=== PATIENT | female | born 1970 | race Caucasian/White ===

== ENCOUNTER 2021-07-19 20:32 | Inpatient (IN) ==
[2021-07-19] MEDS ORDERED: PANTOprazole 80 MG in DEXTROSE 5% 100 ML IV STA (21:04)
[2021-07-19] MEDS ORDERED: SODIUM CHLORIDE 0.9% 1000ML 1,000 ML IV ONE (21:04)
--- NOTE | 2021-07-19 21:10 | Emergency Department Note ---
Impression & Plan Acute upper gastrointestinal bleeding, COVID-19 ED Provider Note Name: JENNIFER MUNOZ Age: 51 Sex: F Arrives Via: Ambulance Informant: Patient ED Provider: Rafael Lewis MD Chief Complaint: Bloody Stools Impression: As Per Impressions Above Medical Decision Makin yr old female with remote history of gastric bypass arrives with black/bloody stools and some blood in emesis. She looks ill on arrival and has diaphoresis with some non-specific ST abnormalities on EKG. Labs obtained and CT a/p which reveal no acute findings. She ended up being positive for Covid which is likely cause of her ill appearance. Fluids and protonix given and patient does appear much better with IV fluids. Given GI bleed with GBypass history and ill appearance hospitalization warranted. Triage/Nursing Notes reviewed by Me Differentials:Diverticulosis, AVM, coagulopathy, colitis, inflammatory bowel disease, malignancy, Angie-Mederos tear, esophagitis, peptic ulcer disease, variceal bleed, gastritis, epistaxis, fissure, hemorrhoids, as well as other pathologies. Vital Signs: reviewed and remarkable for no significant abnormalities Interventions: saline lock, nss bolus, protonix iv Labs:Reviewed and remarkable for no significant abnormalities Imaging:See Below Per My Interpretation: Indication Illness: NSR 86 bpm, qtc 457, there are ST depressions anterior without STEMI. Mildly enlarged P waves. No Ectopy. Consults:Dr Jacob BALDWIN Hospitalist Plan: Disposition:Hospitalization. Condition: Good History of Present Illness:51 yr old female arrives for evaluation of gi bleed. Patient notes history of Gastric Bypass about 5 yrs ago at [facility]. Denies abdominal issues and no history GERD nor gastritis. Today noted increasing weakness and fatigue. Started having bloody bowel movements. Assoc iated with episode vomiting that notes some blood in it. Worsening weakness, fatigue, diaphoresis and feeling like she would pass out. Notes with laying flat and relaxing she feels much better. Denies fevers, chills, syncope, nausea, headache, back pain, abdominal pain, urinary symptoms, bruising, leg swelling, calf pain, nor other symptoms. Denies history GI Bleed. No trauma, injuries, falls. Standing makes worse, rest makes better. On on blood thinners, NSAIDs, nor asa. ROS: See above HPI for pertinent positives & negatives. A total of 10 systems reviewed and were otherwise negative. Past Medical History:HTN, Chronica pin Past Surgical History:Gastric Bypass Family History:none Social History:See Below Home Medications:Gabapentin, Bupropion Allergies:Lisinopril, Penicillin Vitals:Blood Pressure: 127/74, Pulse 92, RR 20, T 36.4C, O2 100% on RA Physical Exam: GENERAL: Patient is tired/pale appearing and in mild distress. Diaphoretic EYES: No scleral icterus, unremarkable pupils. Pale conjunctiva ENT: Mucous membranes moist, no nasal congestion. NECK: No masses appreciated, nomeningismus, trachea is midline. RESPIRATORY: No dyspnea. Clear to auscultation and equal bilaterally. No wheeze, no rhonchi. CARDIOVASCULAR: Regular rate and rhythm.No murmurs, rubs, gallops appreciated. GASTROINTESTINAL: Abdomen soft, non-tender, no peritonitis.Bowel sounds positive.No masses appreciated. BACK: No midline tenderness, no CVA tenderness EXTREMITIES: Normal motion all extremities, no cyanosis, no edema. NEUROLOGIC: Alert and oriented, no acute motor or sensory deficits, no focal weakness, cranial nerves grossly intact. SKIN: No rash, no jaundice, no diaphoresis. PSYCH: Appropriate GCS: 15 ED Course: Times/Reassessments: much improved with IV fluids and appears comfortable. Rafael Lewis MD Past Med/Surg History Medical History Depression Migraine headache Vitamin B12 deficiency Surgical History Gastric bypass status for obesity Social History Smoking Status: Former smoker Hx Alcohol Use: No Hx Substance Use: No Preferred Language: Maori Communication Ability: Effective Television Maintenance Man Required: No Beliefs That Will Affect Care: None Current Living Situation: Spouse Feels Safe at Home: Yes Assistive Devices: None Allergies Allergies Allergy/AdvReac Type Severity Reaction Status Date / Time Penicillins Allergy Intermediate HIVES-REDDENED Verified 07/20/21 12:48 WELTS lisinopril AdvReac Intermediate Cough Verified 07/20/21 12:48 Home Meds Home Medications Medication Instructions Recorded Confirmed calcium carbonate 600 mg calcium 600 mg PO DAILY 07/19/21 07/20/21 (1,500 mg) tablet (Calcium) cetirizine 10 mg tablet (Zyrtec) 10 mg PO DAILY 07/19/21 07/20/21 cholecalciferol (vitamin D3) 50 50 mcg PO DAILY 07/19/21 07/20/21 mcg (2,000 unit) capsule (Vitamin D3) cyanocobalamin (vitamin B-12) 1,000 mcg PO DAILY 07/19/21 07/20/21 1,000 mcg tablet (Vitamin B-12) gabapentin 100 mg capsule 100 mg PO HS 07/19/21 07/20/21 multivitamin 1 tab PO DAILY 07/19/21 07/20/21 rizatriptan 5 mg tablet 5 mg PO DIRECTED PRN 07/19/21 07/20/21 sertraline 50 mg tablet 50 mg PO DAILY 07/19/21 07/20/21 vitamin E 400 unit capsule 400 unit PO DAILY 07/19/21 07/19/21 Previous Rx's Medication Instructions Recorded pantoprazole 40 mg tablet,delayed 40 mg PO DAILY 28 Days #28 tab 07/21/21 release (Protonix) sodium,potassium,mag sulfates 17.5 See Rx Instructions PO .COMPLEX 07/22/21 gram-3.13 gram-1.6 gram oral soln #354 ml (Suprep Bowel Prep Kit) Results & Data (ED) Vital Signs Vital Signs - 24 hr 07/19/21 20:41 Temperature 36.4 C L Temperature Source Oral Pulse Rate 92 H Respiratory Rate 20 Blood Pressure 127/74 Blood Pressure Mean 91 Pulse Oximetry 100 Oxygen Delivery Method Room Air Sepsis Recent Fever Within 48 Hours No Sepsis New/Unexplained Change in Mental Status N/A Sepsis Action Taken by Nursing No Action Required Laboratory Data Result diagrams: 07/21/21 14:40 07/19/21 21:38 Lab Results 07/19/21 07/19/21 07/19/21 Range/Units 21:19 21:24 21:24 WBC (4.8-10.8) K/uL RBC (4.2-5.4) M/uL Hgb (12.0-16.0) g/dL POC Hgb 10.2 L (12.0-16.0) g/dl Hct (37-47) % POC Hct 30 L (37-47) % MCV (80-100) fL MCH (25-34) pg MCHC (32-36) g/dL RDW Std Deviation (36.4-46.3) fL RDW Coeff of Yoel (11.5-14.5) % Plt Count (130-400) K/uL MPV (7.4-10.4) fL Immature Gran % (Auto) % Neut % (Auto) % Lymph % (Auto) % [place] % (Auto) % Eos % (Auto) % Baso % (Auto) % Neut # (Auto) (1.4-6.5) K/uL Lymph # (Auto) (1.2-3.4) K/uL [place] # (Auto) (0.11-0.59) K/uL Eos # (Auto) (0-0.5) K/uL Baso # (Auto) (0-0.2) K/uL Immature Gran # (Auto) (0.00-0.02) K/uL PT (9.0-12.0) Seconds INR (0.9-1.1) APTT (21.0-31.0) Seconds PTT Ratio POC Sodium 141 (135-144) mmol/L Sodium (136-145) mmol/L POC Potassium 3.9 (3.3-5.0) mmol/L Potassium (3.5-5.1) mmol/L POC Chloride 107 (101-112) mmol/L Chloride (98-107) mmol/L Carbon Dioxide (21-32) mmol/L POC Total CO2 21 L (24-31) mmol/L Anion Gap (3-11) POC Anion Gap 18.0 (16-25) mmol/L POC BUN 39 H (7-18) mg/dl BUN (7-18) mg/dl Creatinine (0.6-1.2) mg/dl POC Creatinine 0.8 (0.6-1.3) mg/dl Est Cr Clr Drug Dosing ml/min Est GFR ( Amer) ml/min Est GFR (Non-Af Amer) ml/min BUN/Creatinine Ratio (10-20) Glucose (70-99) mg/dl POC Glucose (other) 214 H (70-99) mg/dl Calcium (8.5-10.1) mg/dl POC Ioniz Calcium Addy 1.16 (1.12-1.32) mmol/l Magnesium (1.8-2.4) mg/dl Total Bilirubin (0.2-1) mg/dl Direct Bilirubin (0-0.2) mg/dl AST (15-37) U/L ALT (12-78) U/L Alkaline Phosphatase (45-117) U/L Troponin I (0-0.045) ng/ml Total Protein (6.4-8.2) gm/dl Albumin (3.4-5.0) gm/dl Lipase (73-393) U/L Urine Color Urine Appearance (Clear) Urine pH (4.5-7.5) Ur Specific Temple (1.000-1.030) Urine Protein (Negative) Urine Glucose (UA) (Negative) Urine Ketones (Negative) Urine Blood (Negative) Urine Nitrite (Negative) Urine Bilirubin (Negative) Urine Urobilinogen (Negative) Ur Leukocyte Esterase (Negative) Urine WBC (Auto) (0-5) /hpf Urine RBC (Auto) (0-4) /hpf U Hyaline Cast (Auto) (0-5) /lpf U Epithel Cells (Auto) (0-5) /lpf Urine Bacteria (Auto) (Negative) Urine Yeast Urine Test (Negative) COVID-19 Eval Order Covid19 at [facility] SARS-CoV-2 (PCR) POSITIVE A* (Negative) Blood Type Antibody Screen 07/19/21 07/19/21 07/19/21 Range/Units 21:38 21:38 21:38 WBC 19.83 H (4.8-10.8) K/uL RBC 3.79 L (4.2-5.4) M/uL Hgb 11.1 L (12.0-16.0) g/dL POC Hgb (12.0-16.0) g/dl Hct 33.3 L (37-47) % POC Hct (37-47) % MCV 87.9 (80-100) fL MCH 29.3 (25-34) pg MCHC 33.3 (32-36) g/dL RDW Std Deviation 43.8 (36.4-46.3) fL RDW Coeff of Yoel 13.6 (11.5-14.5) % Plt Count 318 (130-400) K/uL MPV 10.2 (7.4-10.4) fL Immature Gran % (Auto) 0.4 % Neut % (Auto) 80.1 % Lymph % (Auto) 15.4 % [place] % (Auto) 3.6 % Eos % (Auto) 0.3 % Baso % (Auto) 0.2 % Neut # (Auto) 15.89 H (1.4-6.5) K/uL Lymph # (Auto) 3.06 (1.2-3.4) K/uL [place] # (Auto) 0.72 H (0.11-0.59) K/uL Eos # (Auto) 0.06 (0-0.5) K/uL Baso # (Auto) 0.03 (0-0.2) K/uL Immature Gran # (Auto) 0.07 H (0.00-0.02) K/uL PT 10.4 (9.0-12.0) Seconds INR 1.0 (0.9-1.1) APTT 21.2 (21.0-31.0) Seconds PTT Ratio 0.8 POC Sodium (135-144) mmol/L Sodium (136-145) mmol/L POC Potassium (3.3-5.0) mmol/L Potassium (3.5-5.1) mmol/L POC Chloride (101-112) mmol/L Chloride (98-107) mmol/L Carbon Dioxide (21-32) mmol/L POC Total CO2 (24-31) mmol/L Anion Gap (3-11) POC Anion Gap (16-25) mmol/L POC BUN (7-18) mg/dl BUN (7-18) mg/dl Creatinine (0.6-1.2) mg/dl POC Creatinine (0.6-1.3) mg/dl Est Cr Clr Drug Dosing ml/min Est GFR ( Amer) ml/min Est GFR (Non-Af Amer) ml/min BUN/Creatinine Ratio (10-20) Glucose (70-99) mg/dl POC Glucose (other) (70-99) mg/dl Calcium (8.5-10.1) mg/dl POC Ioniz Calcium Addy (1.12-1.32) mmol/l Magnesium (1.8-2.4) mg/dl Total Bilirubin (0.2-1) mg/dl Direct Bilirubin (0-0.2) mg/dl AST (15-37) U/L ALT (12-78) U/L Alkaline Phosphatase (45-117) U/L Troponin I (0-0.045) ng/ml Total Protein (6.4-8.2) gm/dl Albumin (3.4-5.0) gm/dl Lipase (73-393) U/L Urine Color Urine Appearance (Clear) Urine pH (4.5-7.5) Ur Specific Temple (1.000-1.030) Urine Protein (Negative) Urine Glucose (UA) (Negative) Urine Ketones (Negative) Urine Blood (Negative) Urine Nitrite (Negative) Urine Bilirubin (Negative) Urine Urobilinogen (Negative) Ur Leukocyte Esterase (Negative) Urine WBC (Auto) (0-5) /hpf Urine RBC (Auto) (0-4) /hpf U Hyaline Cast (Auto) (0-5) /lpf U Epithel Cells (Auto) (0-5) /lpf Urine Bacteria (Auto) (Negative) Urine Yeast Urine Test (Negative) COVID-19 Eval Order SARS-CoV-2 (PCR) (Negative) Blood Type Cancelled Antibody Screen Cancelled 07/19/21 07/19/21 07/19/21 Range/Units 21:38 22:29 22:29 WBC (4.8-10.8) K/uL RBC (4.2-5.4) M/uL Hgb (12.0-16.0) g/dL POC Hgb (12.0-16.0) g/dl Hct (37-47) % POC Hct (37-47) % MCV (80-100) fL MCH (25-34) pg MCHC (32-36) g/dL RDW Std Deviation (36.4-46.3) fL RDW Coeff of Yoel (11.5-14.5) % Plt Count (130-400) K/uL MPV (7.4-10.4) fL Immature Gran % (Auto) % Neut % (Auto) % Lymph % (Auto) % [place] % (Auto) % Eos % (Auto) % Baso % (Auto) % Neut # (Auto) (1.4-6.5) K/uL Lymph # (Auto) (1.2-3.4) K/uL [place] # (Auto) (0.11-0.59) K/uL Eos # (Auto) (0-0.5) K/uL Baso # (Auto) (0-0.2) K/uL Immature Gran # (Auto) (0.00-0.02) K/uL PT (9.0-12.0) Seconds INR (0.9-1.1) APTT (21.0-31.0) Seconds PTT Ratio POC Sodium (135-144) mmol/L Sodium 142 (136-145) mmol/L POC Potassium (3.3-5.0) mmol/L Potassium 3.9 (3.5-5.1) mmol/L POC Chloride (101-112) mmol/L Chloride 110 H (98-107) mmol/L Carbon Dioxide 22 (21-32) mmol/L POC Total CO2 (24-31) mmol/L Anion Gap 10.0 (3-11) POC Anion Gap (16-25) mmol/L POC BUN (7-18) mg/dl BUN 44 H (7-18) mg/dl Creatinine 0.97 (0.6-1.2) mg/dl POC Creatinine (0.6-1.3) mg/dl Est Cr Clr Drug Dosing 107.7 ml/min Est GFR ( Amer) 78.9 ml/min Est GFR (Non-Af Amer) 68.1 ml/min BUN/Creatinine Ratio 45.4 H (10-20) Glucose 212 H (70-99) mg/dl POC Glucose (other) (70-99) mg/dl Calcium 8.8 (8.5-10.1) mg/dl POC Ioniz Calcium Addy (1.12-1.32) mmol/l Magnesium 2.1 (1.8-2.4) mg/dl Total Bilirubin 0.5 (0.2-1) mg/dl Direct Bilirubin < 0.1 (0-0.2) mg/dl AST 9 L (15-37) U/L ALT 19 (12-78) U/L Alkaline Phosphatase 85 (45-117) U/L Troponin I < 0.015 (0-0.045) ng/ml Total Protein 6.2 L (6.4-8.2) gm/dl Albumin 3.2 L (3.4-5.0) gm/dl Lipase 176 (73-393) U/L Urine Color Dark Yellow Urine Appearance Clear (Clear) Urine pH 5.0 (4.5-7.5) Ur Specific Temple > 1.045 H (1.000-1.030) Urine Protein 1+ H (Negative) Urine Glucose (UA) Negative (Negative) Urine Ketones Trace H (Negative) Urine Blood 1+ H (Negative) Urine Nitrite Negative (Negative) Urine Bilirubin Negative (Negative) Urine Urobilinogen Negative (Negative) Ur Leukocyte Esterase Trace H (Negative) Urine WBC (Auto) 10-30 H (0-5) /hpf Urine RBC (Auto) 0-4 (0-4) /hpf U Hyaline Cast (Auto) 10-30 H (0-5) /lpf U Epithel Cells (Auto) >30 H (0-5) /lpf Urine Bacteria (Auto) 1+ H (Negative) Urine Yeast Not Reportable Urine Test Negative (Negative) COVID-19 Eval Order SARS-CoV-2 (PCR) (Negative) Blood Type Antibody Screen Administered Medications Discontinued Medications Sodium Chloride (Nss 1000ml) 1,000 mls @ 999 mls/hr IV .Q1H1M ONE Stop: 07/19/21 22:04 Last Infusion: 07/20/21 03:36 Dose: 999 mls/hr Documented by: [id number] Admin: 07/19/21 21:30 Dose: 999 mls/hr Documented by: [id number] Pantoprazole Sodium 80 mg/ (Dextrose) 100 mls @ 400 mls/hr IV ONE STA Stop: 07/19/21 21:18 Last Infusion: 07/19/21 22:13 Dose: 0 mls/hr Documented by: [id number] Admin: 07/19/21 21:48 Dose: 400 mls/hr Documented by: [id number] Ceftriaxone Sodium (Rocephin) 2,000 mg in 70 mls @ 140 mls/hr IV NOW STA Stop: 07/19/21 23:08 Last Infusion: 07/20/21 01:09 Dose: 140 mls/hr Documented by: [id number] Admin: 07/20/21 00:27 Dose: 140 mls/hr Documented by: [id number] Potassium Chloride/Sodium Chloride (Normal Saline W/20 Meq Kcl) 20 meq in 1,000 mls @ 100 mls/hr IV .Q10H VITO Stop: 08/19/21 00:43 Last Admin: 07/21/21 16:38 Dose: Not Given Documented by: [id number] Admin: 07/21/21 16:37 Dose: Not Given Documented by: [id number] Admin: 07/21/21 16:25 Dose: Not Given Documented by: [id number] Infusion: 07/21/21 16:23 Dose: 0 mls/hr Documented by: [id number] Infusion: 07/21/21 16:07 Dose: 0 mls/hr Documented by: [id number] Admin: 07/21/21 06:29 Dose: 100 mls/hr Documented by: [id number] Infusion: 07/20/21 13:01 Dose: 100 mls/hr Documented by: [id number] Admin: 07/20/21 03:01 Dose: 100 mls/hr Documented by: [id number] Ertapenem 1,000 mg/ Sodium (Chloride) 60 mls @ 100 mls/hr IV Q24H VITO Stop: 07/30/21 00:59 Last Infusion: 07/20/21 10:49 Dose: 0 mls/hr Documented by: [id number] Admin: 07/20/21 09:43 Dose: 100 mls/hr Documented by: [id number] Pantoprazole Sodium 40 mg/ (Dextrose) 100 mls @ 20 mls/hr IV Q5H VITO Stop: 08/19/21 00:43 Last Admin: 07/20/21 03:35 Dose: Not Given Documented by: [id number] Sodium Chloride (Nss 1000ml) 1,000 mls @ 999 mls/hr IV .Q1H1M ONE Stop: 07/20/21 02:13 Last Admin: 07/20/21 01:57 Dose: Not Given Documented by: [id number] Pantoprazole Sodium 40 mg/ (Syringe) 10 mls @ 5 mls/min IV BID@0900,2100 [facility] Stop: 08/19/21 08:59 Last Admin: 07/20/21 22:58 Dose: 5 mls/min Documented by: [id number] Admin: 07/20/21 09:43 Dose: 5 mls/min Documented by: [id number] Iron Sucrose 200 mg/ Sodium (Chloride) 110 mls @ 220 mls/hr IV TODAY ONE Stop: 07/21/21 15:59 Last Infusion: 07/21/21 16:37 Dose: 0 mls/hr Documented by: [id number] Admin: 07/21/21 16:07 Dose: 220 mls/hr Documented by: [id number] Ioversol (Optiray 320 125ml) 110 ml IV ONCE ONE Stop: 07/19/21 22:25 Last Admin: 07/19/21 22:24 Dose: 110 ml Documented by: [id number] Labetalol HCl (Labetalol Hcl Iv 5 Mg/Ml 20ml) Confirm Administered Dose 5 mg IV .STK-MED ONE Stop: 07/20/21 14:24 Last Admin: 07/21/21 07:32 Dose: Not Given Documented by: [id number] Miscellaneous Information (Nursing To Pharmacy Communication) 1 ea N/A TODAY VITO Stop: 08/19/21 02:14 Last Admin: 07/20/21 03:35 Dose: Not Given Documented by: [id number] Discharge Plan Visit Data Chief Complaint: GI Bleed Stated Complaint: GI Bleed ED Provider: Rafael Lewis Discharge Problem: Acute upper gastrointestinal bleeding, COVID-19 Patient Disposition: Admitted As Inpatient Condition: Good Discharge Instructions Interventions: ED Discharge Assessment Last Done: 07/20/21 00:25
[2021-07-19 21:32] LABS: iSTAT Creatinine 0.8 mg/dl (0.6-1.3); iSTAT Hemoglobin 10.2 g/dl (12.0-16.0); iSTAT Ionized Calcium 1.16 mmol/l (1.12-1.32); iSTAT Potassium 3.9 mmol/L (3.3-5.0)
--- NOTE | 2021-07-19 21:40 | XRay Report ---
XR chest 1V portable INDICATION: MN ^gi bleed, weakness . TECHNIQUE: Single frontal radiograph of the chest was obtained. Comparison: None available at the time of this dictation. FINDINGS: No lines and tubes are seen. The cardiomediastinal silhouette is normal. The lungs are clear. No evid ence of pleural effusion or pneumothorax. IMPRESSION: No acute chest disease. ACT 112: Negative or not required by law. Electronically signed by: Lencho Wolf M.D. 07/19/2021 9:39 PM
[2021-07-19 21:46] LABS: Basophils # (auto) 0.03 K/uL (0-0.2); Basophils % (auto) 0.2 %; Eosinophils # (auto) 0.06 K/uL (0-0.5); Eosinophils % (auto) 0.3 %; Hematocrit (blood only) 33.3 % (37-47); Hemoglobin 11.1 g/dL (12.0-16.0); Immature Granulocytes # (auto) 0.07 K/uL (0.00-0.02); Immature Granulocytes % (auto) 0.4 %; Lymphocytes # (auto) 3.06 K/uL (1.2-3.4); Lymphocytes % (auto) 15.4 %; Mean Corpuscular Hemoglobin 29.3 pg (25-34); Mean Corpuscular Hgb Conc 33.3 g/dL (32-36); Mean Corpuscular Volume 87.9 fL (80-100); Mean Platelet Volume 10.2 fL (7.4-10.4); Monocytes # (auto) 0.72 K/uL (0.11-0.59); Monocytes % (auto) 3.6 %; Neutrophils # (auto) 15.89 K/uL (1.4-6.5); Neutrophils % (auto) 80.1 %; Platelet Count 318 K/uL (130-400); RDW Coefficient of Variation 13.6 % (11.5-14.5); RDW Standard Deviation 43.8 fL (36.4-46.3); Red Blood Count 3.79 M/uL (4.2-5.4); White Blood Count 19.83 K/uL (4.8-10.8)
[2021-07-19 22:01] LABS: Partial Thromboplastin Ratio 0.8; Partial Thromboplastin Time 21.2 Seconds (21.0-31.0); Prothrombin Time 10.4 Seconds (9.0-12.0)
[2021-07-19 22:10] LABS: Alanine Aminotransferase 19 U/L (12-78); Albumin Level 3.2 gm/dl (3.4-5.0); Aspartate Aminotransferase 9 U/L (15-37); BUN Creatinine Ratio 45.4 (10-20); Bilirubin Direct < 0.1 mg/dl (0-0.2); Blood Urea Nitrogen 44 mg/dl (7-18); Calcium 8.8 mg/dl (8.5-10.1); Carbon Dioxide 22 mmol/L (21-32); Chloride 110 mmol/L (98-107); Creatinine Clr Calc Pharmacy 107.7 ml/min; Est GFR (African American) 78.9 ml/min; Est GFR (Non-African American) 68.1 ml/min; Glucose 212 mg/dl (70-99); Lipase 176 U/L (73-393); Magnesium 2.1 mg/dl (1.8-2.4); Potassium 3.9 mmol/L (3.5-5.1); Sodium 142 mmol/L (136-145)
[2021-07-19 22:14] LABS: Alkaline Phosphatase 85 U/L (45-117); Bilirubin,Total 0.5 mg/dl (0.2-1); Total Protein 6.2 gm/dl (6.4-8.2); Troponin I < 0.015 ng/ml (0-0.045)
[2021-07-19] MEDS ORDERED: OPTIRAY 320 125ml IV ONE (22:24)
--- NOTE | 2021-07-19 22:32 | CT Scan Report ---
CT abd pelvis IV con only CLINICAL INDICATION: MN ^B12 CTR ^GI Bleed, WBC elevation. TECHNIQUE: Helical axial images of the abdomen and pelvis were obtained and displayed. Automated dose lowering techniques and/or adjustment according to patient size were utilized for this exam. This e xam was performed with intravenous contrast. COMPARISON: None available at the time of this dictation. FINDINGS: Lower chest: No acute abnormality Liver: Unremarkable. No focal lesions are seen. Gallbladder and biliary tree: No calcified gallstones. Normal caliber wall. No intra- or extrahepatic biliary ductal dilation. Pancreas: Fatty replacement of the pancreas is seen. Spleen: Unremarkable. Adrenals: Unremarkable. Kidneys and ureters: Unremarkable. Bladder: Limited evaluation due to underdistention. Reproductive organs: Patient is status post hysterectomy. Bowel: Unremarkable. The appendix is unremarkable. Patient is status post gastric surgery. A small hi atal hernia is seen. Lymph nodes Retroperitoneal: Unremarkable. Mesenteric: Unremarkable. Pelvic: Unremarkable. Peritoneum: Normal Vessels: Atherosclerotic calcifications are seen. Abdominal wall: Unremarkable. Bones: Unremarkable. IMPRESSION: No acute abnormalities. Patient is status post gastric surgery. ACT 112: Negative or not required by law. Electronically signed by: Lencho Wolf M.D. 07/19/2021 10:31 PM
[2021-07-19] MEDS ORDERED: cefTRIAXone SODIUM 2,000 MG/70 ML BAG IV STA (22:39)
[2021-07-19 22:58] LABS: Pregnancy Test, Urine Negative (Negative)
[2021-07-19 22:59] LABS: Appearance Urine Clear (Clear); Bacteria Urine Automated 1+ (Negative); Bilirubin Urine Negative (Negative); Blood Urine 1+ (Negative); Color Urine Dark Yellow; Epithelial Cell Urine Auto >30 /lpf (0-5); Glucose Urine UA Negative (Negative); Ketones Urine Trace (Negative); Leukocyte Esterase Urine Trace (Negative); Nitrite Urine Negative (Negative); Protein Urine 1+ (Negative); RBC Urine Automated 0-4 /hpf (0-4); Specific Gravity Urine > 1.045 (1.000-1.030); Urobilinogen Urine Negative (Negative)
--- NOTE | 2021-07-19 23:47 | History & Physical Report ---
Date of Service July 19, 2021 Assessment & Plan (1) GI bleed: Plan: GI bleed- Patient and report vomiting blood, and passing blood per rectum. Gastric bypass status NPO Denies NSAID use Given Protonix 80 mg IV by IV ED. Add Protonix drip H&H every 6 hours Ceftriaxone 2 g IV daily Zofran 4 mg IV every 6 hours as needed Consult gastroenterology, concern regarding anastomotic ulcer (2) Gastric bypass status for obesity: Plan: See above (3) Anemia due to blood loss, acute: Plan: Hemoglobin 11.1 upon admission. H&H every 6 hours as noted Type and screen and blood consent obtained (4) Depression: Plan: Hold sertraline and gabapentin for now (5) Vitamin B12 deficiency: Plan: Hold B12 supplementation (6) Migraine headache: Plan: Hold rizatriptan for now (7) Morbid obesity with BMI of 45.0-49.9, adult: Plan: Noted (8) Asymptomatic COVID-19 virus infection: Plan: Preadmission testing tested positive for COVID-19. Patient has no symptoms, therefore no treatment indicated, but per protocol the patient will be placed in a negative pressure room History of Present Illness Chief Complaint: The patient presents to the emergency department with acute development today of vomiting blood, and passage of blood rectally Primary Care Provider: Molly Herron DO The patient is a 51-year-old female with a past medical history including gastric bypass surgery about 5 years ago at [facility] in [place], allergic rhinitis, vitamin B12 deficiency, migraine headache, depression and morbid obesity. She underwent an uneventful gastric bypass surgery as noted above, he has not had any adverse events since that time. She presents today with passage of blood from orally and rectally. She denies any abdominal pain or rectal pain She denies any previous occurrence of the symptoms she denies any NSAID use. Her last oral intake was earlier in the day today. Allergies Allergy/AdvReac Type Severity Reaction Status Date / Time Penicillins Allergy Intermediate HIVES-REDDENED Verified 07/19/21 23:07 WELTS lisinopril AdvReac Intermediate Cough Verified 07/19/21 23:07 Home Medications Medication Instructions Recorded Confirmed Type calcium carbonate 600 mg calcium 600 mg PO DAILY 07/19/21 07/19/21 History (1,500 mg) tablet (Calcium) cetirizine 10 mg tablet (Zyrtec) 10 mg PO DAILY 07/19/21 07/19/21 History cholecalciferol (vitamin D3) 50 50 mcg PO DAILY 07/19/21 07/19/21 History mcg (2,000 unit) capsule (Vitamin D3) cyanocobalamin (vitamin B-12) 1,000 mcg PO DAILY 07/19/21 07/19/21 History 1,000 mcg tablet (Vitamin B-12) gabapentin 100 mg capsule 100 mg PO HS 07/19/21 07/19/21 History multivitamin 1 tab PO DAILY 07/19/21 07/19/21 History rizatriptan 5 mg tablet 5 mg PO DIRECTED PRN 07/19/21 07/19/21 History sertraline 50 mg tablet 50 mg PO DAILY 07/19/21 07/19/21 History vitamin E 400 unit capsule 400 unit PO DAILY 07/19/21 07/19/21 History Past Med/Surg History Medical History (Updated 07/20/21 @ 01:25 by Taco James MD) Depression Migraine headache Vitamin B12 deficiency Surgical History (Updated 07/20/21 @ 01:25 by Taco James MD) Gastric bypass status for obesity Social History Smoking Status: Former smoker Preferred Language: [place] Feels Safe at Home: Yes Review of Systems Review of Systems: The patient denies chest pain, palpitations, shortness of breath, dyspnea on exertion, cough, lower extremity swelling, sore throat, fevers, chills, sweats, constipation, blood in urine, dysuria, urinary frequency or urgency, headache, memory loss, loss of consciousness, rash, abnormal bruising or bleeding, imbalance, focal weakness, numbness or tingling in arms or legs, generalized arthralgias or myalgias, back or neck pain, or night sweats. The review of systems is otherwise negative other than for that already noted above, and at least 10 systems have been reviewed. Physical Exam Physical Exam: The patient is awake, alert and oriented 3, well developed and well nourished, normocephalic and atraumatic, lying in bed and in no acute distress. HEENT--PERRL, EOMI, mucous membranes and oropharynx dry. Neck--supple. No JVD. No bruits. Thyroid normal, trachea midline, no adenopathy. Heart--normal S1 and S2. No murmurs, rubs or gallops. Lungs--clear bilaterally, no respiratory distress, no accessory muscle use. Abdomen--normal bowel sounds and soft. Nontender. Nondistended. Morbidly obese Extremities--no cyanosis or clubbing. No edema. Dermatologic--normal skin turgor, normal color, no abnormal lymph nodes, no rash. Neurologic--cranial nerves II through XII grossly intact. Rheumatologic--normal range of motion. Psychiatric--normal affect. Results & Data Results & [facility] Vital Signs (Past 12 Hours) Vital Signs Temp Pulse Resp BP Pulse Ox 07/19/21 23:00 69 13 100 07/19/21 22:00 74 18 92/78 L 98 07/19/21 20:41 97.5 F L 92 H 20 127/74 100 Laboratory Results Laboratory Results WBC 19.83 K/uL (4.8-10.8) H 07/19/21 21:38 RBC 3.79 M/uL (4.2-5.4) L 07/19/21 21:38 Hgb 11.1 g/dL (12.0-16.0) L 07/19/21 21:38 POC Hgb 10.2 g/dl (12.0-16.0) L 07/19/21 21:19 Hct 33.3 % (37-47) L 07/19/21 21:38 POC Hct 30 % (37-47) L 07/19/21 21:19 MCV 87.9 fL (80-100) 07/19/21 21:38 MCH 29.3 pg (25-34) 07/19/21 21:38 MCHC 33.3 g/dL (32-36) 07/19/21 21:38 RDW Std Deviation 43.8 fL (36.4-46.3) 07/19/21 21:38 RDW Coeff of Yoel 13.6 % (11.5-14.5) 07/19/21 21:38 Plt Count 318 K/uL (130-400) 07/19/21 21:38 MPV 10.2 fL (7.4-10.4) 07/19/21 21:38 Immature Gran % (Auto) 0.4 % 07/19/21 21:38 Neut % (Auto) 80.1 % 07/19/21 21:38 Lymph % (Auto) 15.4 % 07/19/21 21:38 [place] % (Auto) 3.6 % 07/19/21 21:38 Eos % (Auto) 0.3 % 07/19/21 21:38 Baso % (Auto) 0.2 % 07/19/21 21:38 Neut # (Auto) 15.89 K/uL (1.4-6.5) H 07/19/21 21:38 Lymph # (Auto) 3.06 K/uL (1.2-3.4) 07/19/21 21:38 [place] # (Auto) 0.72 K/uL (0.11-0.59) H 07/19/21 21:38 Eos # (Auto) 0.06 K/uL (0-0.5) 07/19/21 21:38 Baso # (Auto) 0.03 K/uL (0-0.2) 07/19/21 21:38 Immature Gran # (Auto) 0.07 K/uL (0.00-0.02) H 07/19/21 21:38 PT 10.4 Seconds (9.0-12.0) 07/19/21 21:38 INR 1.0 (0.9-1.1) 07/19/21 21:38 APTT 21.2 Seconds (21.0-31.0) 07/19/21 21:38 PTT Ratio 0.8 07/19/21 21:38 POC Sodium 141 mmol/L (135-144) 07/19/21 21:19 Sodium 142 mmol/L (136-145) 07/19/21 21:38 POC Potassium 3.9 mmol/L (3.3-5.0) 07/19/21 21:19 Potassium 3.9 mmol/L (3.5-5.1) 07/19/21 21:38 POC Chloride 107 mmol/L (101-112) 07/19/21 21:19 Chloride 110 mmol/L (98-107) H 07/19/21 21:38 Carbon Dioxide 22 mmol/L (21-32) 07/19/21 21:38 POC Total CO2 21 mmol/L (24-31) L 07/19/21 21:19 Anion Gap 10.0 (3-11) 07/19/21 21:38 POC Anion Gap 18.0 mmol/L (16-25) 07/19/21 21:19 POC BUN 39 mg/dl (7-18) H 07/19/21 21:19 BUN 44 mg/dl (7-18) H 07/19/21 21:38 Creatinine 0.97 mg/dl (0.6-1.2) 07/19/21 21:38 POC Creatinine 0.8 mg/dl (0.6-1.3) 07/19/21 21:19 Est Cr Clr Drug Dosing 107.7 ml/min 07/19/21 21:38 Est GFR ( Amer) 78.9 ml/min 07/19/21 21:38 Est GFR (Non-Af Amer) 68.1 ml/min 07/19/21 21:38 BUN/Creatinine Ratio 45.4 (10-20) H 07/19/21 21:38 Glucose 212 mg/dl (70-99) H 07/19/21 21:38 POC Glucose (other) 214 mg/dl (70-99) H 07/19/21 21:19 Lactate 3.0 mmol/L (0.4-2.0) H* 07/20/21 00:04 Calcium 8.8 mg/dl (8.5-10.1) 07/19/21 21:38 POC Ioniz Calcium Addy 1.16 mmol/l (1.12-1.32) 07/19/21 21:19 Magnesium 2.1 mg/dl (1.8-2.4) 07/19/21 21:38 Total Bilirubin 0.5 mg/dl (0.2-1) 07/19/21 21:38 Direct Bilirubin < 0.1 mg/dl (0-0.2) 07/19/21 21:38 AST 9 U/L (15-37) L 07/19/21 21:38 ALT 19 U/L (12-78) 07/19/21 21:38 Alkaline Phosphatase 85 U/L (45-117) 07/19/21 21:38 Troponin I < 0.015 ng/ml (0-0.045) 07/19/21 21:38 Total Protein 6.2 gm/dl (6.4-8.2) L 07/19/21 21:38 Albumin 3.2 gm/dl (3.4-5.0) L 07/19/21 21:38 Lipase 176 U/L (73-393) 07/19/21 21:38 Urine Color Dark Yellow 07/19/21 22:29 Urine Appearance Clear (Clear) 07/19/21 22: Urine pH 5.0 (4.5-7.5) 07/19/21 22:29 Ur Specific [place] > 1.045 (1.000-1.030) H 07/19/21 22:29 Urine Protein 1+ (Negative) H 07/19/21 22:29 Urine Glucose (UA) Negative (Negative) 07/19/21 22: Urine Ketones Trace (Negative) H 07/19/21 22: Urine Blood 1+ (Negative) H 07/19/21 22: Urine Nitrite Negative (Negative) 07/19/21 22: Urine Bilirubin Negative (Negative) 07/19/21 22: Urine Urobilinogen Negative (Negative) 07/19/21 22:29 Ur Leukocyte Esterase Trace (Negative) H 07/19/21 22:29 Urine WBC (Auto) 10-30 /hpf (0-5) H 07/19/21 22:29 Urine RBC (Auto) 0-4 /hpf (0-4) 07/19/21 22: U Hyaline Cast (Auto) 10-30 /lpf (0-5) H 07/19/21 22:29 U Epithel Cells (Auto) >30 /lpf (0-5) H 07/19/21 22:29 Urine Bacteria (Auto) 1+ (Negative) H 07/19/21 22:29 Urine Yeast Not Reportable 07/19/21 22:29 Urine Test Negative (Negative) 07/19/21 22:29 COVID-19 Eval Order Covid19 at [facility] 07/19/21 21:24 SARS-CoV-2 (PCR) POSITIVE (Negative) A* 07/19/21 21:24 Blood Type O Negative 07/20/21 00:04 Antibody Screen NEGATIVE 07/20/21 00:04 Impressions Chest X-Ray 07/19/21 21:05 XR chest 1V portable INDICATION: MN ^gi bleed, weakness . TECHNIQUE: Single frontal radiograph of the chest was obtained. Comparison: None available at the time of this dictation. FINDINGS: No lines and tubes are seen. The cardiomediastinal silhouette is normal. The lungs are clear. No evidence of pleural effusion or pneumothorax. IMPRESSION: No acute chest disease. ACT 112: Negative or not required by law. Electronically signed by: Lencho Wolf M.D. 07/19/2021 9:39 PM Abdomen/Pelvis CT 07/19/21 21:56 CT abd pelvis IV con only CLINICAL INDICATION: MN ^B12 CTR ^GI Bleed, WBC elevation. TECHNIQUE: Helical axial images of the abdomen and pelvis were obtained and displayed. Automated dose lowering techniques and/or adjustment according to patient size were utilized for this exam. This exam was performed with intravenous contrast. COMPARISON: None available at the time of this dictation. FINDINGS: Lower chest: No acute abnormality Liver: Unremarkable. No focal lesions are seen. Gallbladder and biliary tree: No calcified gallstones. Normal caliber wall. No intra- or extrahepatic biliary ductal dilation. Pancreas: Fatty replacement of the pancreas is seen. Spleen: Unremarkable. Adrenals: Unremarkable. Kidneys and ureters: Unremarkable. Bladder: Limited evaluation due to underdistention. Reproductive organs: Patient is status post hysterectomy. Bowel: Unremarkable. The appendix is unremarkable. Patient is status post gastric surgery. A small hiatal hernia is seen. Lymph nodes Retroperitoneal: Unremarkable. Mesenteric: Unremarkable. Pelvic: Unremarkable. Peritoneum: Normal Vessels: Atherosclerotic calcifications are seen. Abdominal wall: Unremarkable. Bones: Unremarkable. IMPRESSION: No acute abnormalities. Patient is status post gastric surgery. ACT 112: Negative or not required by law. Electronically signed by: Lencho Wolf M.D. 07/19/2021 10:31 PM Code Status & VTE Plan Code Status Full code VTE Prophylaxis Plan VTE Prophylaxis will be ordered: Yes PG Care Time/CCT Total # of Minutes Spent Total Time Spent with Patient: Total time spent is greater than 50% in coordination of care (as documented) at patient's floor/unit and/or counseling patient: Coding Level of Care Code 24308 Initial Inpt Care Lvl 3 Diagnoses GI bleed K92.2 Gastric bypass status for obesity Z98.84 Anemia due to blood loss, acute D62 Depression F32.A Vitamin B12 deficiency E53.8 Migraine headache G43.909 Morbid obesity with BMI of 45.0-49.9, adult E66.01; Z68.42 Asymptomatic COVID-19 virus infection U07.1
[2021-07-20] MEDS ORDERED: ONDANSETRON INJ 2 MG/ML 2 ML VIAL IV PRN ×2 (00:44→12:26)
[2021-07-20] MEDS ORDERED: ERTAPENEM SODIUM 1,000 MG in SODIUM CHLORIDE 0.9% 50 ML IV SCH (01:00)
[2021-07-20] MEDS ORDERED: SODIUM CHLORIDE 0.9% 1000ML 1,000 ML IV ONE (01:13)
[2021-07-20] MEDS ORDERED: PANTOprazole 40 MG in DEXTROSE 5% 100 ML IV SCH (01:30)
[2021-07-20] MEDS ORDERED: Nursing to Pharmacy Communication SCH (02:15)
[2021-07-20] MEDS: NSS + 20MEQ KCL 20 MEQ/1,000 ML BAG IV SCH (03:01)
[2021-07-20 05:43] LABS: Hematocrit (blood only) 27.5 % (37-47); Hemoglobin 9.4 g/dL (12.0-16.0)
[2021-07-20 06:04] LABS: Troponin I < 0.015 ng/ml (0-0.045)
[2021-07-20] MEDS: PANTOprazole 40 MG in SYRINGE 0 ML IV SCH ×2 (09:43→22:58)
--- NOTE | 2021-07-20 09:45 | Gastrointestinal Consultation ---
Date of Consultation July 20, 2021 Assessment & Plan (1) Anemia due to blood loss, acute: (2) Gastric bypass status for obesity: 1. NPO for now. 2. EGD with Dr. Beverly in the OR for further evaluation. 3. Continue Pantoprazole 40 mg IV BID. 4. Further recommendations will be made pending results of testing. Thank you for allowing us to participate in the care of this patient. If you have any questions or concerns, please do not hesitate to contact us. Supervising Physician Co-Signing Physician Notes I personally evaluated the patient and agree with the findings as documented by ARANZA Moise Exam: abd: soft, nt, nd History of Present Illness Reason for Consultation: GIB Requesting Physician: Dr. James Attending Physician: Lencho Gonzales DO History of Present Illness Patient is a very pleasant 51 y.o. female with a history of morbid obesity s/p gastric bypass at [facility] in [place], [place] ~3 years ago admitted with an abrupt onset of hematemesis and rectal bleeding. She states the emesis was more bright red but the rectal bleeding was dark red with associated loose stools. Denies any abdominal pain. No further n/v since admission to the hospital last night. Denies any aspirin or ibuprofen use. Rare ETOH. States she has never undergone a prior upper endoscopic evaluation in the past. On arrival, her H&H was noted to be 11.1/33.3 but dropped to 9.4/27.5 today. BUN was noted to be 44. She was COVID-19 positive in the ER but is asymptomatic. Denies any chest pain, shortness of breath, cough, and loss of taste/smell. CT a/p was reviewed and was without any acute findings. She was been made NPO and started on Pantoprazole 40 mg IV BID. Allergies Allergy/AdvReac Type Severity Reaction Status Date / Time Penicillins Allergy Intermediate HIVES-REDDENED Verified 07/19/21 23:07 WELTS lisinopril AdvReac Intermediate Cough Verified 07/19/21 23:07 Home Medications Medication Instructions Recorded Confirmed Type calcium carbonate 600 mg calcium 600 mg PO DAILY 07/19/21 07/19/21 History (1,500 mg) tablet (Calcium) cetirizine 10 mg tablet (Zyrtec) 10 mg PO DAILY 07/19/21 07/19/21 History cholecalciferol (vitamin D3) 50 50 mcg PO DAILY 07/19/21 07/19/21 History mcg (2,000 unit) capsule (Vitamin D3) cyanocobalamin (vitamin B-12) 1,000 mcg PO DAILY 07/19/21 07/19/21 History 1,000 mcg tablet (Vitamin B-12) gabapentin 100 mg capsule 100 mg PO HS 07/19/21 07/19/21 History multivitamin 1 tab PO DAILY 07/19/21 07/19/21 History rizatriptan 5 mg tablet 5 mg PO DIRECTED PRN 07/19/21 07/19/21 History sertraline 50 mg tablet 50 mg PO DAILY 07/19/21 07/19/21 History vitamin E 400 unit capsule 400 unit PO DAILY 07/19/21 07/19/21 History Patient History Medical History Depression Migraine headache Vitamin B12 deficiency Surgical History Gastric bypass status for obesity Social History Smoking Status: Former smoker Hx Alcohol Use: No Hx Substance Use: No Preferred Language: Divehi Communication Ability: Effective Solar [employer] Required: No Beliefs That Will Affect Care: None Current Living Situation: Spouse Other Information That Helps Us Care for You: No Feels Safe at Home: Yes Safety Concerns: Feels Safe At This Time Assistive Devices: Glasses Review of Systems Review of Systems: All systems reviewed & are unremarkable except as noted in HPI & below Physical Exam Constitutional: WD/WN, vitals as above Eyes: + anicteric sclerae and EOM intact bilaterally Neck: normal visual inspection Respiratory: normal respiratory effort; no cough Gastrointestinal (Abdomen): Inspection/Auscultation: + significant pannus Percussion/Palpation: abdomen soft; abdomen nontender Musculoskeletal: Extremities: extremities normal to inspection Skin: + pallor Psychiatric: A+Ox3, euthymic affect Results & Data ([place]) Vital Signs (Past 12 Hours) Vital Signs Pulse Resp BP Pulse Ox Pulse Ox 07/20/21 05:00 86 17 98 07/20/21 04:30 77 18 98 07/20/21 04:00 79 19 07/20/21 03:30 73 18 96 07/20/21 03:00 72 17 135/85 96 07/20/21 02:51 83 21 07/20/21 00:44 95 07/20/21 00:30 68 15 99 07/20/21 00:00 67 14 98 07/19/21 23:30 85 13 99 07/19/21 23:00 69 13 100 07/19/21 22:00 74 18 92/78 L 98 Laboratory Results Abnormal lab results 07/19/21 07/19/21 07/19/21 Range/Units 21:19 21:24 21:38 WBC 19.83 H (4.8-10.8) K/uL RBC 3.79 L (4.2-5.4) M/uL Hgb 11.1 L (12.0-16.0) g/dL POC Hgb 10.2 L (12.0-16.0) g/dl Hct 33.3 L (37-47) % POC Hct 30 L (37-47) % Neut # (Auto) 15.89 H (1.4-6.5) K/uL [place] # (Auto) 0.72 H (0.11-0.59) K/uL Immature Gran # (Auto) 0.07 H (0.00-0.02) K/uL Chloride (98-107) mmol/L POC Total CO2 21 L (24-31) mmol/L POC BUN 39 H (7-18) mg/dl BUN (7-18) mg/dl BUN/Creatinine Ratio (10-20) Glucose (70-99) mg/dl POC Glucose (other) 214 H (70-99) mg/dl Lactate (0.4-2.0) mmol/L AST (15-37) U/L Total Protein (6.4-8.2) gm/dl Albumin (3.4-5.0) gm/dl Ur Specific [place] (1.000-1.030) Urine Protein (Negative) Urine Ketones (Negative) Urine Blood (Negative) Ur Leukocyte Esterase (Negative) Urine WBC (Auto) (0-5) /hpf U Hyaline Cast (Auto) (0-5) /lpf U Epithel Cells (Auto) (0-5) /lpf Urine Bacteria (Auto) (Negative) SARS-CoV-2 (PCR) POSITIVE A* (Negative) 07/19/21 07/19/21 07/20/21 Range/Units 21:38 22:29 00:04 WBC (4.8-10.8) K/uL RBC (4.2-5.4) M/uL Hgb (12.0-16.0) g/dL POC Hgb (12.0-16.0) g/dl Hct (37-47) % POC Hct (37-47) % Neut # (Auto) (1.4-6.5) K/uL [place] # (Auto) (0.11-0.59) K/uL Immature Gran # (Auto) (0.00-0.02) K/uL Chloride 110 H (98-107) mmol/L POC Total CO2 (24-31) mmol/L POC BUN (7-18) mg/dl BUN 44 H (7-18) mg/dl BUN/Creatinine Ratio 45.4 H (10-20) Glucose 212 H (70-99) mg/dl POC Glucose (other) (70-99) mg/dl Lactate 3.0 H* (0.4-2.0) mmol/L AST 9 L (15-37) U/L Total Protein 6.2 L (6.4-8.2) gm/dl Albumin 3.2 L (3.4-5.0) gm/dl Ur Specific [place] > 1.045 H (1.000-1.030) Urine Protein 1+ H (Negative) Urine Ketones Trace H (Negative) Urine Blood 1+ H (Negative) Ur Leukocyte Esterase Trace H (Negative) Urine WBC (Auto) 10-30 H (0-5) /hpf U Hyaline Cast (Auto) 10-30 H (0-5) /lpf U Epithel Cells (Auto) >30 H (0-5) /lpf Urine Bacteria (Auto) 1+ H (Negative) SARS-CoV-2 (PCR) (Negative) 07/20/21 Range/Units 05:36 WBC (4.8-10.8) K/uL RBC (4.2-5.4) M/uL Hgb 9.4 L (12.0-16.0) g/dL POC Hgb (12.0-16.0) g/dl Hct 27.5 L (37-47) % POC Hct (37-47) % Neut # (Auto) (1.4-6.5) K/uL [place] # (Auto) (0.11-0.59) K/uL Immature Gran # (Auto) (0.00-0.02) K/uL Chloride (98-107) mmol/L POC Total CO2 (24-31) mmol/L POC BUN (7-18) mg/dl BUN (7-18) mg/dl BUN/Creatinine Ratio (10-20) Glucose (70-99) mg/dl POC Glucose (other) (70-99) mg/dl Lactate (0.4-2.0) mmol/L AST (15-37) U/L Total Protein (6.4-8.2) gm/dl Albumin (3.4-5.0) gm/dl Ur Specific [place] (1.000-1.030) Urine Protein (Negative) Urine Ketones (Negative) Urine Blood (Negative) Ur Leukocyte Esterase (Negative) Urine WBC (Auto) (0-5) /hpf U Hyaline Cast (Auto) (0-5) /lpf U Epithel Cells (Auto) (0-5) /lpf Urine Bacteria (Auto) (Negative) SARS-CoV-2 (PCR) (Negative) PG Care Time/CCT Total # of Minutes Spent Total Time Spent with Patient: Total time spent is greater than 50% in coordination of care (as documented) at patient's floor/unit and/or counseling patient: Coding Level of Care Code 18761 Initial Inpt Care Lvl 3 Diagnoses Anemia due to blood loss, acute D62 Gastric bypass status for obesity Z98.84
--- NOTE | 2021-07-20 10:36 | Anesthesiology Consultation ---
Date of Service July 20, 2021 Assessment & Plan (1) Encounter for pre-operative examination: Chart Review Chart Review: Acceptable Risk for Surgery and Patient NOT seen in Pre Admission Testing Consults Requested none History Surgery Operation Date: 07/20/21 10:20 Proposed Procedures p Esophagogastroduodenoscopy - Norman Beverly MD Operation Date: 07/20/21 17:45 Proposed Procedures p Esophagogastroduodenoscopy Dr. Beverly - Norman Beverly MD Height/Weight Height: 5 ft 10 in Weight: 143.1 kg Allergies Allergy/AdvReac Type Severity Reaction Status Date / Time Penicillins Allergy Intermediate HIVES-REDDENED Verified 07/19/21 23:07 WELTS lisinopril AdvReac Intermediate Cough Verified 07/19/21 23:07 Medications Home Medications Medication Instructions Recorded Confirmed Last Taken calcium carbonate 600 mg calcium 600 mg PO DAILY 07/19/21 07/19/21 07/19/21 (1,500 mg) tablet (Calcium) cetirizine 10 mg tablet (Zyrtec) 10 mg PO DAILY 07/19/21 07/19/21 07/19/21 cholecalciferol (vitamin D3) 50 50 mcg PO DAILY 07/19/21 07/19/21 07/19/21 mcg (2,000 unit) capsule (Vitamin D3) cyanocobalamin (vitamin B-12) 1,000 mcg PO DAILY 07/19/21 07/19/21 07/19/21 1,000 mcg tablet (Vitamin B-12) gabapentin 100 mg capsule 100 mg PO HS 07/19/21 07/19/21 07/18/21 multivitamin 1 tab PO DAILY 07/19/21 07/19/21 07/19/21 rizatriptan 5 mg tablet 5 mg PO DIRECTED PRN 07/19/21 07/19/21 Unknown sertraline 50 mg tablet 50 mg PO DAILY 07/19/21 07/19/21 07/19/21 vitamin E 400 unit capsule 400 unit PO DAILY 07/19/21 07/19/21 07/19/21 Active Medications Generic Name Dose Route Start Last Admin Trade Name Freq PRN Reason Stop Dose Admin Potassium Chloride/Sodium Chloride 20 meq in 1,000 mls @ 100 mls/hr 07/20/21 00:44 07/20/21 03:01 Normal Saline W/20 Meq Kcl IV 08/19/21 00:43 100 mls/hr .Q10H VITO Administration Ertapenem 1,000 mg/ Sodium 60 mls @ 100 mls/hr 07/20/21 01:00 07/20/21 09:43 Chloride IV 07/30/21 00:59 100 mls/hr Q24H VITO Administration Pantoprazole Sodium 40 mg/ 10 mls @ 5 mls/min 07/20/21 09:00 07/20/21 09:43 Syringe IV 08/19/21 08:59 5 mls/min BID@0900,2100 VITO Administration Past Medical History Medical History Depression Migraine headache Vitamin B12 deficiency Past Surgical History Surgical History Gastric bypass status for obesity Social History Smoking Status: Former smoker Hx Alcohol Use: No Hx Substance Use: No Physical Exam Vital Signs Last Vital Signs Temp 97.5 F L 07/19/21 20:41 Pulse 86 07/20/21 05:00 Resp 17 07/20/21 05:00 BP 135/85 07/20/21 03:00 Pulse Ox 98 07/20/21 05:00 Testing Laboratory Results 07/20/21 05:36 07/19/21 21:38 PT 10.4 Seconds (9.0-12.0) 07/19/21 21:38 INR 1.0 (0.9-1.1) 07/19/21 21:38 APTT 21.2 Seconds (21.0-31.0) 07/19/21 21:38 Urine Color Dark Yellow 07/19/21 22:29 Urine Appearance Clear (Clear) 07/19/21 22:29 Urine pH 5.0 (4.5-7.5) 07/19/21 22:29 Ur Specific [place] > 1.045 (1.000-1.030) H 07/19/21 22:29 Urine Protein 1+ (Negative) H 07/19/21 22:29 Urine Glucose (UA) Negative (Negative) 07/19/21 22:29 Urine Ketones Trace (Negative) H 07/19/21 22:29 Urine Nitrite Negative (Negative) 07/19/21 22:29 Ur Leukocyte Esterase Trace (Negative) H 07/19/21 22:29 Urine WBC (Auto) 10-30 /hpf (0-5) H 07/19/21 22:29 Urine RBC (Auto) 0-4 /hpf (0-4) 07/19/21 22:29 U Hyaline Cast (Auto) 10-30 /lpf (0-5) H 07/19/21 22:29 U Epithel Cells (Auto) >30 /lpf (0-5) H 07/19/21 22:29 Urine Bacteria (Auto) 1+ (Negative) H 07/19/21 22:29 Urine Test Negative (Negative) 07/19/21 22:29 Blood Type O Negative 07/20/21 00:04 Antibody Screen NEGATIVE 07/20/21 00:04 07/19/21 22:29 Urine Test Negative Laboratory Tests 07/19/21 21:24 SARS-CoV-2 (PCR) POSITIVE A* Electrocardiogram Date: 07/19/21 Findings: + NSR @ (86) Chest X-Ray Date: 07/19/21 Findings: + NAD
[2021-07-20] MEDS ORDERED: SUCCINYLCHOLINE CHLORIDE 20 MG/ML 10 ML VIAL IV ONE (11:12)
[2021-07-20] MEDS ORDERED: PROPOFOL IV EMULSION 10 MG/ML 20 ML VIAL IV ONE (11:12)
[2021-07-20 11:18] LABS: Hematocrit (blood only) 27.5 % (37-47); Hemoglobin 9.3 g/dL (12.0-16.0)
[2021-07-20] MEDS ORDERED: ePHEDrine sulfate 50 MG/ML AMP IV PRN (12:26)
[2021-07-20] MEDS ORDERED: ATROPINE SULFATE 0.1 MG/ML 10ML SYR IV PRN (12:26)
[2021-07-20] MEDS ORDERED: LABETALOL HCL IV 5 MG/ML 20ML IV ONE (14:23)
--- NOTE | 2021-07-20 14:33 | Procedure Note ---
Procedure Note Date of Service July 20, 2021 Note GI brief procedure note/ post op note EGD findings: normal anastomosis, evidence of previous bypass, normal duodenal loops as well. recs: --trend H/H --protonix 40 mg daily --supportive care --can consider outpatient colonoscopy in 2-4 weeks rest as per primary team Norman Beverly MD Gastroenterology Coding
--- NOTE | 2021-07-20 14:36 | GI REPORT ---
Patient Name: Pascale Grajeda Procedure Date: 07/20/2021 1:12 PM Date of : 1970 Admit Type: Inpatient Age: 51 Gender: Female Attending MD: Norman Beverly MD Procedure: Upper GI endoscopy Providers: Norman Beverly MD Referring MD: Taco James Indications: Hematemesis, Hematochezia Medicines: Monitored Anesthesia Care Complications: No immediate complications. Estimated blood loss: None. Estimated Blood Loss: Estimated blood loss: none. Procedure: Pre-Anesthesia Assessment: - Prior Anticoagulants: The patient has taken no previous anticoagulant or antiplatelet agents. - ASA Grade Assessment: II - A patient with mild systemic disease. After obtaining informed consent, the endoscope was passed under direct vision. Throughout the procedure, the patient's blood pressure, pulse, and oxygen saturations were monitored continuously. The Endoscope was introduced through the mouth, and advanced to the second part of duodenum. The upper GI endoscopy was accomplished without difficulty. The patient tolerated the procedure well. Findings: The examined esophagus was normal. The anastomosis was normal as well as the remnant stomach. evidence of previous bypass surgery is noted. The examined duodenum was normal. Impression: - Normal esophagus. - Normal anastomosis. - Normal examined duodenum. - No specimens collected. Recommendation: - Return patient to [facility] for [facility] care. - Clear liquid diet today. if H/H stable tomorrow can advance as tolerated --supportive care --trend H/H --consider outpatient colonoscopy in 2-4 weeks Norman Beverly MD 07/20/2021 2:36:18 PM This report has been signed electronically. Note Initiated On: 07/20/2021 1:12 PM Number of Addenda: 0 I attest to the content of the Intraoperative Record and orders documented therein, exceptions below {[id number]}
--- NOTE | 2021-07-20 14:43 | Anesthesiology Progress Note ---
Date of Service July 20, 2021 Anesthesia Post Procedure Vital Signs Vital Signs: Temp Pulse Pulse Resp BP BP Pulse Ox 07/20/21 12:38 98.5 F 81 135/96 100 07/20/21 12:15 98.6 F 73 18 135/96 100 07/20/21 05:00 86 17 98 07/20/21 04:30 77 18 98 07/20/21 04:00 79 19 07/20/21 03:30 73 18 96 07/20/21 03:00 72 17 135/85 96 07/20/21 02:51 83 21 07/20/21 00:44 07/20/21 00:30 68 15 99 07/20/21 00:00 67 14 98 07/19/21 23:30 85 13 99 07/19/21 23:00 69 13 100 07/19/21 22:00 74 18 92/78 L 98 07/19/21 20:41 97.5 F L 92 H 20 127/74 100 Pulse Ox 07/20/21 12:38 07/20/21 12:15 07/20/21 05:00 07/20/21 04:30 07/20/21 04:00 07/20/21 03:30 07/20/21 03:00 07/20/21 02:51 07/20/21 00:44 95 07/20/21 00:30 07/20/21 00:00 07/19/21 23:30 07/19/21 23:00 07/19/21 22:00 07/19/21 20:41 Transfer of Care Handoff Completed per policy Notes Mental Status: alert / awake / arousable and participated in evaluation Patient Amnestic to Procedure: Yes Nausea / Vomiting: adequately controlled Pain: adequately controlled Airway Patency, RR, SpO2: stable & adequate BP & HR: stable & adequate Hydration State: stable & adequate Anesthetic Complications: no major complications apparent and Pt Satisfied with anesthetic care
--- NOTE | 2021-07-20 15:18 | Electrocardiogram Report ---
Test Reason : Blood Pressure : / mmHG Vent. Rate : 086 BPM Atrial Rate : 086 BPM P-R Int : 188 ms QRS Dur : 086 ms QT Int : 382 ms P-R-T Axes : 027 042 014 degrees QTc Int : 457 ms Normal sinus rhythm Nonspecific T wave abnormality Abnormal ECG No previous ECGs available Confirmed by Joon Salgado ([id number]) on 07/20/2021 3:18:10 PM Referred By: REFERRED SELF Confirmed By:Joon Salgado
--- NOTE | 2021-07-20 16:30 | Hospitalist Progress Note ---
Date of Service July 20, 2021 Assessment & Plan (1) GI bleed: Plan: GI bleed- Patient and report vomiting blood, and passing blood per rectum. Gastric bypass status no further bleeding, Hb down from 10.2 to 9.3 EGD on 07/[address] Beverly, no signs of bleeding, no ulcers in stomach or anastamosis full liquids this evening, H/H in morning likely needs outpatient colonoscopy in next few weeks plan for discharge tomorrow (2) Gastric bypass status for obesity: Plan: See above (3) Anemia due to blood loss, acute: Plan: Hemoglobin 11.1 upon admission. down to 9.3 repeat in the morning (4) Depression: Plan: resume medications (5) Vitamin B12 deficiency: Plan: Hold B12 supplementation (6) Migraine headache: Plan: Hold rizatriptan for now (7) Morbid obesity with BMI of 45.0-49.9, adult: Plan: Noted (8) Asymptomatic COVID-19 virus infection: Plan: Preadmission testing tested positive for COVID-19. Patient has no symptoms, therefore no treatment indicated, but per protocol the patient will be placed in a negative pressure room vaccine in early summer Admission and Anticipated Discharge Date Admission Date: July 19, 2021 Subjective patient doing well, no further bleeding, no vomiting tolerated her EGD today, d/w Dr. Beverly, no ulcers in stomach, anastamosis, loops of duodenum allow full liquids Hb did go down slightly, repeat in AM again, denies any dyspnea, fever/chills, cough she says she had her COVID vaccine in early summer Review of Systems Review of Systems: All systems reviewed & are unremarkable except as noted in Subjective Physical Exam Physical Exam: General: well developed, well nourished, obese female, no acute distress, comfortable Neck: supple, trachea midline, normal thyroid Lungs: clear to auscultation bilaterally, normal respiratory effort, no accessory muscle use, no distress Heart: regular S1 and S2, no murmur, peripheral pulses normal, capillary refill normal, no edema Abdomen: soft, NT, ND, + BS, no hepatomegaly, normal to percussion Extremities: 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, no cyanosis, no petechiae, strength is 5/5 bilaterally Neuro: awake, cooperative, moves all extremities, no focal motor deficits, CN II-XII intact, sensation in extremities intact, normal speech Skin: warm, dry, no rash, normal turgor Psych: Awake, alert oriented x 3, euthymic affect Results & Data Results & Data ([facility]) Vital Signs (Past 12 Hours) Vital Signs Temp Pulse Pulse Resp BP Pulse Ox 07/20/21 15:07 80 18 183/83 H 99 07/20/21 14:58 83 18 164/88 H 99 07/20/21 14:34 87 12 183/84 H 99 07/20/21 12:38 36.9 C 81 135/96 100 07/20/21 12:15 37 C 73 18 135/96 100 07/20/21 05:00 86 17 98 Laboratory Results Laboratory Results - last 24 hr 07/19/21 07/19/21 07/19/21 21:19 21:24 21:24 WBC RBC Hgb POC Hgb 10.2 L Hct POC Hct 30 L MCV MCH MCHC RDW Std Deviation RDW Coeff of Yoel Plt Count MPV Immature Gran % (Auto) Neut % (Auto) Lymph % (Auto) Wright % (Auto) Eos % (Auto) Baso % (Auto) Neut # (Auto) Lymph # (Auto) Wright # (Auto) Eos # (Auto) Baso # (Auto) Immature Gran # (Auto) PT INR APTT PTT Ratio POC Sodium 141 Sodium POC Potassium 3.9 Potassium POC Chloride 107 Chloride Carbon Dioxide POC Total CO2 21 L Anion Gap POC Anion Gap 18.0 POC BUN 39 H BUN Creatinine POC Creatinine 0.8 Est Cr Clr Drug Dosing Est GFR ( Amer) Est GFR (Non-Af Amer) BUN/Creatinine Ratio Glucose POC Glucose (other) 214 H Lactate Calcium POC Ioniz Calcium Addy 1.16 Magnesium Total Bilirubin Direct Bilirubin AST ALT Alkaline Phosphatase Troponin I Total Protein Albumin Lipase Urine Color Urine Appearance Urine pH Ur Specific [place] Urine Protein Urine Glucose (UA) Urine Ketones Urine Blood Urine Nitrite Urine Bilirubin Urine Urobilinogen Ur Leukocyte Esterase Urine WBC (Auto) Urine RBC (Auto) U Hyaline Cast (Auto) U Epithel Cells (Auto) Urine Bacteria (Auto) Urine Yeast Urine Test COVID-19 Eval Order Covid19 at [facility] SARS-CoV-2 (PCR) POSITIVE A* Blood Type Antibody Screen 07/19/21 07/19/21 07/19/21 21:38 21:38 21:38 WBC 19.83 H RBC 3.79 L Hgb 11.1 L POC Hgb Hct 33.3 L POC Hct MCV 87.9 MCH 29.3 MCHC 33.3 RDW Std Deviation 43.8 RDW Coeff of Yoel 13.6 Plt Count 318 MPV 10.2 Immature Gran % (Auto) 0.4 Neut % (Auto) 80.1 Lymph % (Auto) 15.4 Wright % (Auto) 3.6 Eos % (Auto) 0.3 Baso % (Auto) 0.2 Neut # (Auto) 15.89 H Lymph # (Auto) 3.06 Wright # (Auto) 0.72 H Eos # (Auto) 0.06 Baso # (Auto) 0.03 Immature Gran # (Auto) 0.07 H PT 10.4 INR 1.0 APTT 21.2 PTT Ratio 0.8 POC Sodium Sodium POC Potassium Potassium POC Chloride Chloride Carbon Dioxide POC Total CO2 Anion Gap POC Anion Gap POC BUN BUN Creatinine POC Creatinine Est Cr Clr Drug Dosing Est GFR ( Amer) Est GFR (Non-Af Amer) BUN/Creatinine Ratio Glucose POC Glucose (other) Lactate Calcium POC Ioniz Calcium Addy Magnesium Total Bilirubin Direct Bilirubin AST ALT Alkaline Phosphatase Troponin I Total Protein Albumin Lipase Urine Color Urine Appearance Urine pH Ur Specific [place] Urine Protein Urine Glucose (UA) Urine Ketones Urine Blood Urine Nitrite Urine Bilirubin Urine Urobilinogen Ur Leukocyte Esterase Urine WBC (Auto) Urine RBC (Auto) U Hyaline Cast (Auto) U Epithel Cells (Auto) Urine Bacteria (Auto) Urine Yeast Urine Test COVID-19 Eval Order SARS-CoV-2 (PCR) Blood Type Cancelled Antibody Screen Cancelled 07/19/21 07/19/21 07/19/21 21:38 22:29 22:29 WBC RBC Hgb POC Hgb Hct POC Hct MCV MCH MCHC RDW Std Deviation RDW Coeff of Yoel Plt Count MPV Immature Gran % (Auto) Neut % (Auto) Lymph % (Auto) Wright % (Auto) Eos % (Auto) Baso % (Auto) Neut # (Auto) Lymph # (Auto) Wright # (Auto) Eos # (Auto) Baso # (Auto) Immature Gran # (Auto) PT INR APTT PTT Ratio POC Sodium Sodium 142 POC Potassium Potassium 3.9 POC Chloride Chloride 110 H Carbon Dioxide 22 POC Total CO2 Anion Gap 10.0 POC Anion Gap POC BUN BUN 44 H Creatinine 0.97 POC Creatinine Est Cr Clr Drug Dosing 107.7 Est GFR ( Amer) 78.9 Est GFR (Non-Af Amer) 68.1 BUN/Creatinine Ratio 45.4 H Glucose 212 H POC Glucose (other) Lactate Calcium 8.8 POC Ioniz Calcium Addy Magnesium 2.1 Total Bilirubin 0.5 Direct Bilirubin < 0.1 AST 9 L ALT 19 Alkaline Phosphatase 85 Troponin I < 0.015 Total Protein 6.2 L Albumin 3.2 L Lipase 176 Urine Color Dark Yellow Urine Appearance Clear Urine pH 5.0 Ur Specific [place] > 1.045 H Urine Protein 1+ H Urine Glucose (UA) Negative Urine Ketones Trace H Urine Blood 1+ H Urine Nitrite Negative Urine Bilirubin Negative Urine Urobilinogen Negative Ur Leukocyte Esterase Trace H Urine WBC (Auto) 10-30 H Urine RBC (Auto) 0-4 U Hyaline Cast (Auto) 10-30 H U Epithel Cells (Auto) >30 H Urine Bacteria (Auto) 1+ H Urine Yeast Not Reportable Urine Test Negative COVID-19 Eval Order SARS-CoV-2 (PCR) Blood Type Antibody Screen 07/20/21 07/20/21 07/20/21 00:04 00:04 05:36 WBC RBC Hgb 9.4 L POC Hgb Hct 27.5 L POC Hct MCV MCH MCHC RDW Std Deviation RDW Coeff of Yoel Plt Count MPV Immature Gran % (Auto) Neut % (Auto) Lymph % (Auto) Wright % (Auto) Eos % (Auto) Baso % (Auto) Neut # (Auto) Lymph # (Auto) Wright # (Auto) Eos # (Auto) Baso # (Auto) Immature Gran # (Auto) PT INR APTT PTT Ratio POC Sodium Sodium POC Potassium Potassium POC Chloride Chloride Carbon Dioxide POC Total CO2 Anion Gap POC Anion Gap POC BUN BUN Creatinine POC Creatinine Est Cr Clr Drug Dosing Est GFR ( Amer) Est GFR (Non-Af Amer) BUN/Creatinine Ratio Glucose POC Glucose (other) Lactate 3.0 H* Calcium POC Ioniz Calcium Addy Magnesium Total Bilirubin Direct Bilirubin AST ALT Alkaline Phosphatase Troponin I Total Protein Albumin Lipase Urine Color Urine Appearance Urine pH Ur Specific [place] Urine Protein Urine Glucose (UA) Urine Ketones Urine Blood Urine Nitrite Urine Bilirubin Urine Urobilinogen Ur Leukocyte Esterase Urine WBC (Auto) Urine RBC (Auto) U Hyaline Cast (Auto) U Epithel Cells (Auto) Urine Bacteria (Auto) Urine Yeast Urine Test COVID-19 Eval Order SARS-CoV-2 (PCR) Blood Type O Negative Antibody Screen NEGATIVE 07/20/21 07/20/21 07/20/21 05:36 05:36 10:45 WBC RBC Hgb 9.3 L POC Hgb Hct 27.5 L POC Hct MCV MCH MCHC RDW Std Deviation RDW Coeff of Yoel Plt Count MPV Immature Gran % (Auto) Neut % (Auto) Lymph % (Auto) Wright % (Auto) Eos % (Auto) Baso % (Auto) Neut # (Auto) Lymph # (Auto) Wright # (Auto) Eos # (Auto) Baso # (Auto) Immature Gran # (Auto) PT INR APTT PTT Ratio POC Sodium Sodium POC Potassium Potassium POC Chloride Chloride Carbon Dioxide POC Total CO2 Anion Gap POC Anion Gap POC BUN BUN Creatinine POC Creatinine Est Cr Clr Drug Dosing Est GFR ( Amer) Est GFR (Non-Af Amer) BUN/Creatinine Ratio Glucose POC Glucose (other) Lactate 0.6 Calcium POC Ioniz Calcium Addy Magnesium 2.0 Total Bilirubin Direct Bilirubin AST ALT Alkaline Phosphatase Troponin I < 0.015 Total Protein Albumin Lipase Urine Color Urine Appearance Urine pH Ur Specific [place] Urine Protein Urine Glucose (UA) Urine Ketones Urine Blood Urine Nitrite Urine Bilirubin Urine Urobilinogen Ur Leukocyte Esterase Urine WBC (Auto) Urine RBC (Auto) U Hyaline Cast (Auto) U Epithel Cells (Auto) Urine Bacteria (Auto) Urine Yeast Urine Test COVID-19 Eval Order SARS-CoV-2 (PCR) Blood Type Antibody Screen Medications Administered Current Inpatient Medications Atropine Sulfate (Atropine Sulfate 0.1 Mg/Ml 10ml Syr) 0.5 mg IV Q1M PRN PRN Reason: PACU Use-HR<40 &/or Bradycardi Stop: 07/20/21 20:26 Ephedrine Sulfate (Ephedrine Sulfate 50 Mg/Ml Amp) 5 mg IV Q5M PRN PRN Reason: PACU Use Only-SBP<90 mmHg Stop: 07/20/21 20:26 Potassium Chloride/Sodium Chloride (Normal Saline W/20 Meq Kcl) 20 meq in 1,000 mls @ 100 mls/hr IV .Q10H VITO Stop: 08/19/21 00:43 Last Admin: 07/20/21 03:01 Dose: 100 mls/hr Documented by: Ertapenem 1,000 mg/ Sodium (Chloride) 60 mls @ 100 mls/hr IV Q24H VITO Stop: 07/30/21 00:59 Last Infusion: 07/20/21 10:49 Dose: Infused Documented by: Pantoprazole Sodium 40 mg/ (Syringe) 10 mls @ 5 mls/min IV BID@0900,2100 VITO Stop: 08/19/21 08:59 Last Admin: 07/20/21 09:43 Dose: 5 mls/min Documented by: Ondansetron HCl (Ondansetron Inj 2 Mg/Ml 2 Ml Vial) 4 mg IV Q6H PRN PRN Reason: Nausea Stop: 08/19/21 00:43 Ondansetron HCl (Ondansetron Inj 2 Mg/Ml 2 Ml Vial) 4 mg IV ONCE PRN PRN Reason: PACU Use Only-Nausea/Vomiting Stop: 07/20/21 20:26 PG Care Time/CCT Total # of Minutes Spent Total Time Spent with Patient: Total time spent is greater than 50% in coordination of care (as documented) at patient's floor/unit and/or counseling patient: Coding Level of Care Code 92063 Subseq Hosp Care Lvl 2 Diagnoses GI bleed K92.2 Gastric bypass status for obesity Z98.84 Anemia due to blood loss, acute D62 Depression F32.A Vitamin B12 deficiency E53.8 Migraine headache G43.909 Morbid obesity with BMI of 45.0-49.9, adult E66.01; Z68.42 Asymptomatic COVID-19 virus infection U07.1
[2021-07-20 17:41] LABS: Hematocrit (blood only) 25.8 % (37-47); Hemoglobin 8.6 g/dL (12.0-16.0)
[2021-07-21] MEDS: NSS + 20MEQ KCL 20 MEQ/1,000 ML BAG IV SCH ×4 (06:29→16:38)
[2021-07-21 06:34] LABS: Basophils # (auto) 0.02 K/uL (0-0.2); Basophils % (auto) 0.2 %; Eosinophils % (auto) 1.2 %; Hemoglobin 8.2 g/dL (12.0-16.0); Immature Granulocytes # (auto) 0.02 K/uL (0.00-0.02); Immature Granulocytes % (auto) 0.2 %; Lymphocytes # (auto) 2.74 K/uL (1.2-3.4); Lymphocytes % (auto) 32.6 %; Mean Corpuscular Hemoglobin 29.6 pg (25-34); Mean Corpuscular Hgb Conc 32.8 g/dL (32-36); Mean Corpuscular Volume 90.3 fL (80-100); Mean Platelet Volume 9.5 fL (7.4-10.4); Monocytes # (auto) 0.46 K/uL (0.11-0.59); Monocytes % (auto) 5.5 %; Neutrophils # (auto) 5.06 K/uL (1.4-6.5); Neutrophils % (auto) 60.3 %; Platelet Count 226 K/uL (130-400); RDW Coefficient of Variation 14.8 % (11.5-14.5); RDW Standard Deviation 48.2 fL (36.4-46.3); Red Blood Count 2.77 M/uL (4.2-5.4)
--- NOTE | 2021-07-21 10:44 | Communication Note ---
Date of Service: July 21, 2021 Patient is status post EGD yesterday by Dr. Beverly which was normal. H&H is stable. Recommend outpatient colonoscopy once recovered from COVID-19 infection.
[2021-07-21 14:59] LABS: Hematocrit (blood only) 23.9 % (37-47); Hemoglobin 7.8 g/dL (12.0-16.0)
[2021-07-21] MEDS ORDERED: IRON SUCROSE 200 MG in 0.9 % SODIUM CHLORIDE 100 ML IV ONE (15:30)
--- NOTE | 2021-07-21 16:01 | Discharge Summary ---
Date of Service July 21, 2021 Admission HPI Per Admitting Provider The patient is a 51-year-old female with a past medical history including gastric bypass surgery about 5 years ago at [facility] in [place], allergic rhinitis, vitamin B12 deficiency, migraine headache, depression and morbid obesity. She underwent an uneventful gastric bypass surgery as noted above, he has not had any adverse events since that time. She presents today with passage of blood from orally and rectally. She denies any abdominal pain or rectal pain She denies any previous occurrence of the symptoms she denies any NSAID use. Her last oral intake was earlier in the day today. 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, no cyanosis, no petechiae, strength is 5/5 bilaterally Neuro: awake, cooperative, moves all extremities, no focal motor deficits, CN II-XII intact, sensation in extremities intact, normal speech Skin: warm, dry, no rash, normal turgor Psych: Awake, alert oriented x 3, euthymic affect Discharge Data Allergies Allergy/AdvReac Type Severity Reaction Status Date / Time Penicillins Allergy Intermediate HIVES-REDDENED Verified 07/20/21 12:48 WELTS lisinopril AdvReac Intermediate Cough Verified 07/20/21 12:48 Consultations 07/19/21 22:39 ED Decision to Admit Stat 07/20/21 06:59 Consult Gastroenterology Routine Procedures Performed Operation Date: 07/20/21 10:20 Actual Procedures p Esophagogastroduodenoscopy - Norman Beverly MD Operation Date: 07/20/21 17:45 <No data on this case meets the specified criteria> Ordered Studies 07/19/21 21:56 CT abd pelvis IV con only Stat Hospital Course (1) Anemia due to blood loss, acute: Hemoglobin 11.1 upon admission. down to 9.3 initially and then 8.3, 8.0, 8.2 this morning it is 7.8, BP stable, no signs of further bleeding BUN is down given Venofer IV, arranged for further transfusions in [facility] script for H/H in two days, 07/23 told to return to ED if any further signs of bleeding (2) GI bleed: GI bleed- Patient and report vomiting blood, and passing blood per rectum. Gastric bypass status no further bleeding, Hb down from 10.2 to 9.3, 8.0, 8.2 and now 7.8 BP stable, BUN trending down EGD on 07/[address] Beverly, no signs of bleeding, no ulcers in stomach or anastamosis full liquids, advance diet likely needs outpatient colonoscopy in next few weeks plan for discharge, check H/H in two days knows to return to the ED with any further signs of bleeding (3) Gastric bypass status for obesity: See above (4) Depression: resume medications (5) Vitamin B12 deficiency: Hold B12 supplementation (6) Migraine headache: Hold rizatriptan for now (7) Morbid obesity with BMI of 45.0-49.9, adult: Noted (8) Asymptomatic COVID-19 virus infection: Preadmission testing tested positive for COVID-19. Patient has no symptoms, therefore no treatment indicated, but per protocol the patient will be placed in a negative pressure room vaccinated in early summer Total Time Total Time Spent Total Time Spent (In Minutes): 32 Total Time Includes: Examination of the Patient, Discharge Planning, Medication Reconciliation and Communication With Other Providers Discharge Plan Discharge Items Patient Disposition: Home - Self-Care Reason For Visit: GI Bleed Discharge Diagnosis: GI bleed acute blood loss anemia Condition on Discharge: Good Goals: complete Venofer as outpatient, 4 doses check labs on Monday, hemoglobin level Activity: Resume your previous activity Non-emergency contact: Primary Care Provider and Coach Driver Call non-emergency contact if: you have any medication questions and your symptoms worsen Follow-up/Referrals: Norman Beverly MD [Physician] - 08/05/21 (needs colonoscopy in 2 weeks) Molly Herron DO [Primary Care Provider] - 07/27/21 3:30 am (one week) Diet: Regular Ambulatory Orders: Hemoglobin and Hematocrit (Routine) Timeframe: 2 Days Location: Determined by Patient Ordered By: Lencho Chamberlain Attending Provider Instructions: Medications: - PROTONIX: 40mg daily to help lower acid production in stomach, take for 4 weeks Acute GI bleed, acute blood loss anemia bleeding has clinically stopped, no bowel movements, no vomiting blood when you do have a bowel movement likely that it will still be a little dark monitor for any bright red blood with bowel movements or if you vomit blood again, if that happens then return to the emergency room EGD was normal, no signs of bleeding at all GI recommends a colonoscopy in 2 weeks your hemoglobin (Red blood cells) dropped from 11 to 7.8 but over the past 24 hours has been relatively stable after a large initial drop no need for blood transfusion with hemoglobin > 7.0 will treat you with Venofer to make sure iron stores are sufficient IV iron (Venofer) is preferred route of iron supplementation, especially with your history of gastric bypass I want to get a hemoglobin/hematocrit level on Monday, please get labs at any location, results will go to PCP and I can check them as well COVID positive: unsure of how long you have had COVID since you have no symptoms recommend staying in isolation for a week but safe to leave to get labs as long as you wear a mask when in public Addtl Ship Fitter Provider Instructions: [facility] for Venofer 200mg IV daily x4 is scheduled starting 07/29/21 @ 0830 Pending Studies at Discharge: No Stand-Alone Forms[facility] Medications and DC Order Prescriptions: New pantoprazole [Protonix] 40 mg tablet,delayed release (DR/EC) 40 mg PO DAILY 28 Days Qty: 28 RF: 0 Continued multivitamin Tablet 1 tab PO DAILY RF: 0 cetirizine [Zyrtec] 10 mg Tablet 10 mg PO DAILY RF: 0 cyanocobalamin (vitamin B-12) [Vitamin B-12] 1,000 mcg Tablet 1,000 mcg PO DAILY RF: 0 calcium carbonate [Calcium 600] 600 mg calcium (1,500 mg) Tablet 600 mg PO DAILY RF: 0 gabapentin 100 mg capsule 100 mg PO HS RF: 0 sertraline 50 mg tablet 50 mg PO DAILY RF: 0 vitamin E 400 unit Capsule 400 unit PO DAILY RF: 0 rizatriptan 5 mg tablet 5 mg PO DIRECTED PRN (Reason: Migraine Headache) RF: 0 cholecalciferol (vitamin D3) [Vitamin D3] 50 mcg (2,000 unit) Capsule 50 mcg PO DAILY RF: 0 No Action Suprep Bowel Prep Kit 17.5-3.13-1.6 gram recon soln See Rx Instructions PO .COMPLEX Qty: 354 RF: 0 Discharge Orders: Discharge Order (Routine); Ordered 07/21/21 Ordered By: Lencho Gonzales Admission Data Admit Date/Time: 07/19/21 23:46 Attending Provider: Lencho Gonzales Admit Provider: Taco James Primary Care Provider: Molly Herron Other Providers: Taco James ; Norman Beverly Other Interventions: Discharge Summary Assessment (RN) Last Done: 07/21/21 16:38 Coding Level of Care Code D/C DAY MANAGEMENT >30 MINS Diagnoses Anemia due to blood loss, acute D62 GI bleed K92.2 Gastric bypass status for obesity Z98.84 Depression F32.A Vitamin B12 deficiency E53.8 Migraine headache G43.909 Morbid obesity with BMI of 45.0-49.9, adult E66.01; Z68.42 Asymptomatic COVID-19 virus infection U07.1
== END 2021-07-21 17:50 | disposition home or self-care (01) | DRG 377 ==
LOC: ED 20:32 → EDINP 23:46 → SUATTDRO 23:46 → EDINP 07-20 00:25 → 2E 07-20 20:49